=== PATIENT | female | born 1980 | race Caucasian/White ===

== ENCOUNTER 2021-02-16 00:24 | Emergency (ER) | payer OTHER ==
[~2021-02-16] VITALS: Ht 154.9 cm; Wt 46.7 kg
[2021-02-16] MEDS ORDERED: BIRTH CONTROL PO (00:59)
[2021-02-16] MEDS ORDERED: DEPRESSION (01:00)
[2021-02-16] MEDS ORDERED: ANXIETY (01:00)
[2021-02-16 01:04] LABS: URINE BLOOD NEGATIVE (Negative); URINE CLARITY CLEAR; URINE COLOR YELLOW; URINE GLUCOSE-RANDOM NEGATIVE (Negative); URINE KETONES TRACE (Negative); URINE LEUKOCYTES-REFLEX NEGATIVE (Negative); URINE NITRITE-REFLEX NEGATIVE (Negative); URINE PROTEIN 1+ (Negative); URINE SPECIFIC GRAVITY 1.025 (1.005-1.030)
[2021-02-16 01:06] LABS: URINE BILIRUBIN 1+ (Negative)
[2021-02-16 01:08] LABS: ICTOTEST (BILI CONFIRMATORY) Positive (Negative)
[2021-02-16 01:11] LABS: AMP/METHAMP Negative (Negative); BARBITURATES Negative (Negative); BENZODIAZEPINES Negative (Negative); COCAINE Negative (Negative); METHADONE Negative (Negative); OPIATES Negative (Negative); PCP Negative (Negative); THC POSITIVE (Negative)
[2021-02-16 01:31] LABS: ABSOLUTE EOSINOPHILS 0.1 thou/uL (0.0-0.7); ABSOLUTE LYMPHOCYTES 2.2 thou/uL (0.8-5.3); ABSOLUTE MONOCYTES 0.9 thou/uL (0.0-1.2); ABSOLUTE NEUTROPHILS 10.8 thou/uL (1.6-8.1); BASOPHILS 0.2 %; EOSINOPHILS 0.5 %; HEMATOCRIT 40.8 % (37.0-47.0); HEMOGLOBIN 14.1 gm/dL (12.0-15.0); LYMPHOCYTES 15.5 %; MCH 32.6 pg (26.0-34.0); MCHC 34.6 g/dL (28.0-37.0); MCV 94.4 fL (80.0-100.0); MONOCYTES 6.1 %; MPV 8.7 fl. (7.2-11.1); NUCLEATED RBCS 0 /100WBC; PLATELET COUNT* 205 thou/uL (150-400); POLYS 77.7 %; RBC 4.32 mil/uL (4.20-5.00); RDW-CV 12.5 % (10.5-14.5); WBC 13.9 thou/uL (4.0-11.0)
[2021-02-16 01:35] LABS: CALCIUM 8.9 mg/dL (8.5-10.1); CREATININE 0.7 mg/dL (0.6-1.3)
[2021-02-16 01:37] LABS: POTASSIUM 2.9 mmol/L (3.5-5.1)
[2021-02-16 01:40] LABS: ALBUMIN 4.3 g/dL (3.4-5.0); TOTAL BILIRUBIN 0.6 mg/dL (<0.1-1.0); TOTAL PROTEIN 7.7 g/dL (6.4-8.2)
[2021-02-16 01:57] LABS: SALICYLATE 5.9 mg/dL (2.8-20.0)
[2021-02-16 02:08] LABS: ACETAMINOPHEN < 2 ug/mL (10-30)
[2021-02-16 02:09] LABS: ALCOHOL < 10 mg/dL (<10)
[2021-02-16] MEDS ORDERED: LEXAPRO 10 MG T10 M2 PO (06:05)
[2021-02-16 06:13] VITALS: BP 100/60
== END 2021-02-16 06:14 | disposition home or self-care (01) ==
LOC: M.ERS 00:24
PROVIDERS: Emergency Medicine
DX: R45.851 Suicidal ideations (principal); F17.210 Nicotine dependence, cigarettes, uncomplicated; F32.9 Major depressive disorder, single episode, unspecified; Z79.899 Other long term (current) drug therapy